=== PATIENT | male | born 1965 | race Caucasian/White ===

== ENCOUNTER → 2019-06-18 12:10 | Outpatient (BNVA) | payer MEDICARE, MEDICAID, SELFPAY | PROVIDERS: Family Provider Internal Medicine; PCP Internal Medicine; Visit Provider Specialist | DX: G43.711 Chronic migraine without aura, intractable, with status migrainosus (principal); G51.32 Clonic hemifacial spasm, left; M26.603 Bilateral temporomandibular joint disorder, unspecified; Z87.891 Personal history of nicotine dependence | CPT/HCPCS: 64615; 99212; J0585 ==

== ENCOUNTER → 2019-09-24 13:28 | Outpatient (BNVA) | payer MEDICARE, MEDICAID, SELFPAY | PROVIDERS: Family Provider Internal Medicine; PCP Internal Medicine; Visit Provider Specialist | DX: G43.711 Chronic migraine without aura, intractable, with status migrainosus (principal); M26.603 Bilateral temporomandibular joint disorder, unspecified; G51.32 Clonic hemifacial spasm, left | CPT/HCPCS: 64615; J0585 ==

== ENCOUNTER → 2019-12-17 13:24 | Outpatient (BNVA) | payer MEDICARE, MEDICAID, SELFPAY | PROVIDERS: Family Provider Internal Medicine; PCP Internal Medicine; Visit Provider Specialist | DX: G43.711 Chronic migraine without aura, intractable, with status migrainosus (principal); G51.32 Clonic hemifacial spasm, left; M26.603 Bilateral temporomandibular joint disorder, unspecified | CPT/HCPCS: 64615; J0585 ==

== ENCOUNTER → 2020-03-10 11:29 | Outpatient (BNVA) | payer MEDICARE, MEDICAID, SELFPAY | PROVIDERS: Family Provider Internal Medicine; PCP Internal Medicine; Visit Provider Specialist | DX: G43.711 Chronic migraine without aura, intractable, with status migrainosus (principal); G51.32 Clonic hemifacial spasm, left; M26.603 Bilateral temporomandibular joint disorder, unspecified | CPT/HCPCS: 64615; J0585 ==

== ENCOUNTER → 2020-06-09 10:49 | Outpatient (BNVA) | payer MEDICARE, MEDICAID, SELFPAY | PROVIDERS: Family Provider Internal Medicine; PCP Internal Medicine; Visit Provider Specialist | DX: G51.32 Clonic hemifacial spasm, left (principal); G43.711 Chronic migraine without aura, intractable, with status migrainosus; M26.603 Bilateral temporomandibular joint disorder, unspecified; Z87.891 Personal history of nicotine dependence | CPT/HCPCS: 64615; J0585 ==

== ENCOUNTER → 2020-09-01 10:41 | Outpatient (BNVA) | payer MEDICARE, MEDICAID, SELFPAY | PROVIDERS: Family Provider Internal Medicine; PCP Internal Medicine; Visit Provider Specialist | DX: G43.709 Chronic migraine without aura, not intractable, without status migrainosus (principal); M26.603 Bilateral temporomandibular joint disorder, unspecified; G51.32 Clonic hemifacial spasm, left; Z87.891 Personal history of nicotine dependence | CPT/HCPCS: 64615; J0585 ==

== ENCOUNTER → 2020-12-01 10:19 | Outpatient (BNVA) | payer MEDICARE, MEDICAID, SELFPAY | PROVIDERS: Family Provider Internal Medicine; PCP Internal Medicine; Visit Provider Specialist | DX: G43.709 Chronic migraine without aura, not intractable, without status migrainosus (principal); M26.603 Bilateral temporomandibular joint disorder, unspecified; G51.32 Clonic hemifacial spasm, left; Z87.891 Personal history of nicotine dependence | CPT/HCPCS: 64615; J0585 ==

== ENCOUNTER → 2021-03-02 10:23 | Outpatient (BNVA) | payer MEDICARE, MEDICAID, SELFPAY | PROVIDERS: Family Provider Internal Medicine; PCP Internal Medicine; Visit Provider Specialist | DX: G51.32 Clonic hemifacial spasm, left (principal); M26.603 Bilateral temporomandibular joint disorder, unspecified; G43.709 Chronic migraine without aura, not intractable, without status migrainosus; Z87.891 Personal history of nicotine dependence | CPT/HCPCS: 64612; 64615; J0585 ==

== ENCOUNTER → 2021-06-20 11:26 | Outpatient (BNVA) | payer MEDICARE, MEDICAID, SELFPAY | PROVIDERS: Family Provider Internal Medicine; PCP Internal Medicine; Visit Provider Specialist | DX: G43.711 Chronic migraine without aura, intractable, with status migrainosus (principal); G51.32 Clonic hemifacial spasm, left; M26.603 Bilateral temporomandibular joint disorder, unspecified; G50.0 Trigeminal neuralgia; Z87.891 Personal history of nicotine dependence | CPT/HCPCS: 64615; 99214; J0585 ==

== ENCOUNTER → 2021-09-28 15:10 | Outpatient (BNVA) | payer MEDICARE, MEDICAID, SELFPAY | PROVIDERS: Family Provider Internal Medicine; PCP Internal Medicine; Visit Provider Specialist | DX: G43.711 Chronic migraine without aura, intractable, with status migrainosus (principal); G51.32 Clonic hemifacial spasm, left; Z87.891 Personal history of nicotine dependence | CPT/HCPCS: 64615; J0585 ==

== ENCOUNTER → 2021-12-21 10:47 | Outpatient (BNVA) | payer MEDICARE, MEDICAID, SELFPAY | PROVIDERS: Family Provider Internal Medicine; PCP Internal Medicine; Visit Provider Specialist | DX: G43.711 Chronic migraine without aura, intractable, with status migrainosus (principal); G51.32 Clonic hemifacial spasm, left | CPT/HCPCS: 64615; J0585 ==

== ENCOUNTER → 2022-03-15 10:49 | Outpatient (BNVA) | payer MEDICARE, MEDICAID, SELFPAY | PROVIDERS: Family Provider Internal Medicine; PCP Internal Medicine; Visit Provider Specialist | DX: G43.711 Chronic migraine without aura, intractable, with status migrainosus (principal); G51.32 Clonic hemifacial spasm, left; G50.0 Trigeminal neuralgia; M26.603 Bilateral temporomandibular joint disorder, unspecified | CPT/HCPCS: 64615; J0585 ==

== ENCOUNTER → 2022-06-07 10:27 | Outpatient (BNVA) | payer MEDICARE, MEDICAID, SELFPAY | PROVIDERS: Family Provider Internal Medicine; PCP Internal Medicine; Visit Provider Specialist | DX: G43.711 Chronic migraine without aura, intractable, with status migrainosus (principal); G51.32 Clonic hemifacial spasm, left; M26.603 Bilateral temporomandibular joint disorder, unspecified | CPT/HCPCS: 64615; J0585 ==

== ENCOUNTER → 2022-10-18 11:02 | Outpatient (BNVA) | payer MEDICARE, MEDICAID, SELFPAY | PROVIDERS: Family Provider Internal Medicine; PCP Internal Medicine; Visit Provider Specialist | DX: G51.32 Clonic hemifacial spasm, left (principal); G43.711 Chronic migraine without aura, intractable, with status migrainosus; G24.4 Idiopathic orofacial dystonia; M26.603 Bilateral temporomandibular joint disorder, unspecified; G50.0 Trigeminal neuralgia | CPT/HCPCS: 64612; J0585 ==

== ENCOUNTER → 2023-01-17 11:02 | Outpatient (BNVA) | payer MEDICARE, MEDICAID, SELFPAY | PROVIDERS: Family Provider Internal Medicine; PCP Internal Medicine; Visit Provider Specialist | DX: G51.32 Clonic hemifacial spasm, left (principal); G50.0 Trigeminal neuralgia; G43.711 Chronic migraine without aura, intractable, with status migrainosus | CPT/HCPCS: 64615; J0585 ==

== ENCOUNTER → 2023-04-18 10:47 | Outpatient (BNVA) | payer MEDICARE, MEDICAID, SELFPAY | PROVIDERS: Family Provider Internal Medicine; PCP Internal Medicine; Visit Provider Specialist | DX: G51.32 Clonic hemifacial spasm, left (principal); G43.711 Chronic migraine without aura, intractable, with status migrainosus | CPT/HCPCS: 99213; 64615; 95911; J0585 ==

== ENCOUNTER → 2023-07-25 10:33 | Outpatient (BNVA) | payer MEDICARE, MEDICAID, SELFPAY | PROVIDERS: Family Provider Internal Medicine; PCP Internal Medicine; Visit Provider Specialist | DX: G43.711 Chronic migraine without aura, intractable, with status migrainosus (principal) | CPT/HCPCS: 64615; J0585 ==

== ENCOUNTER → 2023-10-24 10:19 | Outpatient (BNVA) | payer MEDICARE, MEDICAID, SELFPAY | PROVIDERS: Family Provider Internal Medicine; PCP Internal Medicine; Visit Provider Specialist | DX: G43.711 Chronic migraine without aura, intractable, with status migrainosus (principal) | CPT/HCPCS: 64615; J0585 ==

== ENCOUNTER → 2023-10-31 10:20 | Outpatient (BNVA) | payer MEDICARE, MEDICAID, SELFPAY | PROVIDERS: Family Provider Internal Medicine; PCP Internal Medicine; Visit Provider Specialist | DX: G51.32 Clonic hemifacial spasm, left (principal); G43.711 Chronic migraine without aura, intractable, with status migrainosus | CPT/HCPCS: 64612; J0585 ==

== ENCOUNTER → 2024-02-06 11:00 | Outpatient (BNVA) | payer MEDICARE, MEDICAID, SELFPAY | PROVIDERS: Family Provider Internal Medicine; PCP Internal Medicine; Visit Provider Specialist | DX: G51.32 Clonic hemifacial spasm, left (principal); G43.711 Chronic migraine without aura, intractable, with status migrainosus | CPT/HCPCS: 64615; J0585 ==

== ENCOUNTER → 2024-05-15 10:57 | Outpatient (BNVA) | payer MEDICARE, MEDICAID, SELFPAY | PROVIDERS: Family Provider Internal Medicine; PCP Internal Medicine; Visit Provider Specialist | DX: G43.711 Chronic migraine without aura, intractable, with status migrainosus (principal); G51.32 Clonic hemifacial spasm, left | CPT/HCPCS: 64615; J0585 ==

== ENCOUNTER → 2024-08-14 11:40 | Outpatient (BNVA) | payer MEDICARE, MEDICAID, SELFPAY | PROVIDERS: Family Provider Internal Medicine; PCP Internal Medicine; Visit Provider Specialist | DX: G43.711 Chronic migraine without aura, intractable, with status migrainosus (principal) | CPT/HCPCS: 64615; J0585; J9999 ==

== ENCOUNTER → 2024-10-05 12:29 | Outpatient (BNVA) | payer MEDICARE, MEDICAID, SELFPAY | PROVIDERS: Family Provider Internal Medicine; PCP Internal Medicine; Visit Provider Specialist | DX: G51.32 Clonic hemifacial spasm, left (principal); G43.711 Chronic migraine without aura, intractable, with status migrainosus | CPT/HCPCS: 64612; J0585; J9999 ==

== ENCOUNTER → 2024-11-27 11:56 | Outpatient (BNVA) | payer MEDICARE, MEDICAID, SELFPAY | PROVIDERS: Family Provider Internal Medicine; PCP Internal Medicine; Visit Provider Specialist | DX: G43.711 Chronic migraine without aura, intractable, with status migrainosus (principal) | CPT/HCPCS: 64615; J0585; J9999 ==

== ENCOUNTER → 2025-01-28 11:43 | Outpatient (BNVA) | payer MEDICARE, SELFPAY | PROVIDERS: Family Provider Internal Medicine; PCP Internal Medicine; Visit Provider Specialist | DX: G51.32 Clonic hemifacial spasm, left (principal) | CPT/HCPCS: 64612; J0585; J9999 ==

== ENCOUNTER → 2025-03-11 12:50 | Outpatient (BNVA) | payer MEDICARE, SELFPAY | PROVIDERS: Family Provider Internal Medicine; PCP Internal Medicine; Visit Provider Specialist | DX: G43.711 Chronic migraine without aura, intractable, with status migrainosus (principal); G51.32 Clonic hemifacial spasm, left | CPT/HCPCS: 64615; J9999 ==

== ENCOUNTER → 2025-05-06 10:30 | Outpatient (BNVA) | payer MEDICARE, SELFPAY | PROVIDERS: Family Provider Internal Medicine; PCP Internal Medicine; Visit Provider Specialist | DX: G51.32 Clonic hemifacial spasm, left (principal) | CPT/HCPCS: 64612; J0585; J9999 ==